=== PATIENT | male | born 1990 | race Two or more races ===

== ENCOUNTER 2017-01-25 01:28 | Inpatient (IN) | payer BC, OTHER ==
[~2017-01-25] VITALS: Ht 185.4 cm; Wt 96.6 kg
[2017-01-25] MEDS ORDERED: DOXYCYCLINE HYCLATE 100 MG CAP (01:47)
[2017-01-25 02:50] LABS: BASOPHILS % (AUTO) 0.4 % (0.0-2.0); EOSINOPHILS # (AUTO) 0.1 K/uL (0.0-0.7); EOSINOPHILS % (AUTO) 1.3 % (0.0-7.0); HEMATOCRIT 38.1 % (40-50); HEMOGLOBIN 12.5 G/DL (14.0-18.0); LYMPHOCYTES # (AUTO) 3.3 K/UL (0.8-4.8); LYMPHOCYTES % (AUTO) 30.5 % (20.5-51.5); MEAN CORPUSCULAR HEMOGLOBIN 29.7 UUG (27.0-31.0); MEAN CORPUSCULAR HGB CONC 33 g/dL (32.0-37.0); MEAN CORPUSCULAR VOLUME 90.6 FL (82.0-92.0); MONOCYTES # (AUTO) 0.7 K/UL (0.1-1.30); MONOCYTES % (AUTO) 6.9 % (0.0-11.0); NEUTROPHILS # (AUTO) 6.7 K/UL (1.8-8.9); NEUTROPHILS % (AUTO) 60.9 % (38.5-71.5); PLATELET COUNT (AUTO) 212 K/UL (150-450); WHITE BLOOD COUNT (AUTO) 10.8 K/UL (4.0-11.2)
[2017-01-25 02:56] LABS: CREATININE 1.2 mg/dL (0.6-1.3); POTASSIUM 3.7 mmol/L (3.5-5.1)
[2017-01-25 03:03] LABS: BILIRUBIN,DIRECT 0.1 mg/dL (0.0-0.2); BILIRUBIN,TOTAL 0.4 mg/dL (0.2-1.0); TOTAL PROTEIN, SERUM 7.5 g/dL (6.4-8.2)
[2017-01-25 04:27] VITALS: BP 116/59
[2017-01-25 11:04] VITALS: BP 117/72
[2017-01-25 14:47] LABS: BASOPHILS % (AUTO) 0.6 % (0.0-2.0); EOSINOPHILS % (AUTO) 0.3 % (0.0-7.0); HEMATOCRIT 39.9 % (40-50); HEMOGLOBIN 13.1 G/DL (14.0-18.0); LYMPHOCYTES # (AUTO) 1.7 K/UL (0.8-4.8); LYMPHOCYTES % (AUTO) 22.5 % (20.5-51.5); MEAN CORPUSCULAR HEMOGLOBIN 29.7 UUG (27.0-31.0); MEAN CORPUSCULAR HGB CONC 33 g/dL (32.0-37.0); MEAN CORPUSCULAR VOLUME 90.4 FL (82.0-92.0); MONOCYTES # (AUTO) 0.4 K/UL (0.1-1.30); MONOCYTES % (AUTO) 5.8 % (0.0-11.0); NEUTROPHILS # (AUTO) 5.4 K/UL (1.8-8.9); NEUTROPHILS % (AUTO) 70.8 % (38.5-71.5); PLATELET COUNT (AUTO) 234 K/UL (150-450); RED BLOOD CELL COUNT(AUTO) 4.41 MIL/UL (4.7-6.1); WHITE BLOOD COUNT (AUTO) 7.6 K/UL (4.0-11.2)
[2017-01-25 14:54] LABS: BILIRUBIN,TOTAL 0.4 mg/dL (0.2-1.0); CREATININE 1.2 mg/dL (0.6-1.3); MAGNESIUM 2.1 mg/dL (1.8-2.4); PHOSPHOROUS 3.6 mg/dL (2.5-4.9); POTASSIUM 4.2 mmol/L (3.5-5.1); TOTAL PROTEIN, SERUM 7.5 g/dL (6.4-8.2)
[2017-01-25 15:04] LABS: THYROID STIMULATING HORMONE 2.9 mIU/mL (0.358-3.740)
[2017-01-25 15:21] VITALS: BP 105/49
[2017-01-25 20:54] VITALS: BP 107/52
[2017-01-26 04:00] VITALS: BP 108/54
[2017-01-26 07:28] LABS: HEMATOCRIT 41.6 % (40-50); HEMOGLOBIN 13.5 G/DL (14.0-18.0); MEAN CORPUSCULAR HEMOGLOBIN 29.5 UUG (27.0-31.0); MEAN CORPUSCULAR HGB CONC 32 g/dL (32.0-37.0); MEAN CORPUSCULAR VOLUME 91.1 FL (82.0-92.0); PLATELET COUNT (AUTO) 189 K/UL (150-450); RED BLOOD CELL COUNT(AUTO) 4.57 MIL/UL (4.7-6.1); WHITE BLOOD COUNT (AUTO) 13.7 K/UL (4.0-11.2)
[2017-01-26 08:18] LABS: BILIRUBIN,TOTAL 0.4 mg/dL (0.2-1.0); CREATININE 1.2 mg/dL (0.6-1.3); PHOSPHOROUS 4.3 mg/dL (2.5-4.9); POTASSIUM 4.1 mmol/L (3.5-5.1); TOTAL PROTEIN, SERUM 7.8 g/dL (6.4-8.2)
[2017-01-26 11:26] VITALS: BP 107/50
[2017-01-26 11:41] LABS: BAND % (MANUAL) 6 % (0-10); BASOPHILS % (MANUAL) 1 % (0-2); EOSINOPHILS % (MANUAL) 1 % (0-8); LYMPHOCYTES % (MANUAL) 35 % (20-40); MONOCYTES % (MANUAL) 3 % (2-10); NEUTROPHILS % (MANUAL) 54 % (42-75)
[2017-01-26 15:38] VITALS: BP 106/59
[2017-01-26 19:03] LABS: *BILIRUBIN,URIN NEGATIVE (NEGATIVE); *BLOOD, URINE NEGATIVE (NEGATIVE); *CLARITY,URINE CLEAR (CLEAR); *COLOR,URINE YELLOW (YELLOW); *KETONES,URINE NEGATIVE (NEGATIVE); *PROTEIN,URINE NEGATIVE (NEGATIVE); *UROBILINOGEN,URINE 0.2 E.U./dl (NORMAL); LEUKOCYTE ESTERASE ,URINE NEGATIVE (NEGATIVE); NITRITE, URINE NEGATIVE (NEGATIVE); PH,URINE 7.5 (5.0-8.0); UGLUCOSE NEGATIVE (NEGATIVE)
[2017-01-26 19:32] LABS: MUCUS,URINE FEW /LPF (0-FEW); URINE AMORPHOUS PHOSPHATES MODERATE /HPF; WBC,URINE NONE SEEN /HPF (0-3)
[2017-01-26 20:18] VITALS: BP 108/49
[2017-01-27 06:42] LABS: BASOPHILS % (AUTO) 0.4 % (0.0-2.0); EOSINOPHILS # (AUTO) 0.2 K/uL (0.0-0.7); EOSINOPHILS % (AUTO) 2.1 % (0.0-7.0); HEMATOCRIT 39.2 % (40-50); HEMOGLOBIN 13.1 G/DL (14.0-18.0); LYMPHOCYTES # (AUTO) 2.9 K/UL (0.8-4.8); LYMPHOCYTES % (AUTO) 35.6 % (20.5-51.5); MEAN CORPUSCULAR HEMOGLOBIN 30.3 UUG (27.0-31.0); MEAN CORPUSCULAR HGB CONC 34 g/dL (32.0-37.0); MEAN CORPUSCULAR VOLUME 90.5 FL (82.0-92.0); MONOCYTES # (AUTO) 0.6 K/UL (0.1-1.30); NEUTROPHILS # (AUTO) 4.4 K/UL (1.8-8.9); NEUTROPHILS % (AUTO) 53.9 % (38.5-71.5); PLATELET COUNT (AUTO) 259 K/UL (150-450); RED BLOOD CELL COUNT(AUTO) 4.32 MIL/UL (4.7-6.1); WHITE BLOOD COUNT (AUTO) 8.1 K/UL (4.0-11.2)
[2017-01-27 06:54] VITALS: BP 110/52
[2017-01-27 07:03] LABS: BILIRUBIN,TOTAL 0.5 mg/dL (0.2-1.0); CREATININE 1.3 mg/dL (0.6-1.3); MAGNESIUM 2.1 mg/dL (1.8-2.4); PHOSPHOROUS 3.8 mg/dL (2.5-4.9); POTASSIUM 4.2 mmol/L (3.5-5.1); TOTAL PROTEIN, SERUM 7.3 g/dL (6.4-8.2)
[2017-01-27 11:44] VITALS: BP 118/59
[2017-01-27] MEDS ORDERED: LACT1CAP57 PO (12:00)
[2017-01-27] MEDS ORDERED: CLIN300C11 PO (12:00)
[2017-01-27] MEDS ORDERED: HYDR-3326 PO (12:00)
[2017-01-27] MEDS ORDERED: ACET325T53 PO (12:00)
== END 2017-01-27 14:38 | disposition home or self-care (01) | DRG 603 ==
LOC: ER 01:33 → MED 03:15
PROVIDERS: ADMIT Internal Medicine; ATTEND Internal Medicine
PROC: 0H9JXZZ Drainage of Left Upper Leg Skin, External Approach (ICD-10-PCS; principal; 2017-01-25)
PROC: 0H9JXZZ Drainage of Left Upper Leg Skin, External Approach (ICD-10-PCS; 2017-01-26)
DX: L03.116 Cellulitis of left lower limb (principal); E66.3 Overweight; D64.9 Anemia, unspecified; F17.210 Nicotine dependence, cigarettes, uncomplicated; K21.9 Gastro-esophageal reflux disease without esophagitis; L02.416 Cutaneous abscess of left lower limb; R73.9 Hyperglycemia, unspecified; Z82.49 Family history of ischemic heart disease and other diseases of the circulatory system; Z68.28 Body mass index [BMI] 28.0-28.9, adult
CPT/HCPCS: 36415; 71010; 83605; 83735; 84100; 84443; 85025; 85730; 87040; 87070; 87075; 87077; 87086; A4217; A4649; A4663; J0696; J1170; J2060; J2250; J2405; J3010; J3370; J3490; J7030; J7050; J7060; J7120

== ENCOUNTER 2021-06-03 14:36 | Emergency (ER) | payer BC, OTHER ==
[~2021-06-03] VITALS: Ht 185.4 cm; Wt 56.7 kg
[~2021-06-03 14:36] MED LIST: ACET325T53 PO; CLIN300C12 PO; HYDR-3326 PO; LACT1CAP57 PO
--- NOTE | 2021-06-03 16:53 | NUR ---
PT WAS EVALUATED BY DR DE ANDA. PT WAS D/C'd TO HOME.D/C INSTRUCTIONS GIVEN TO THE PT BY DR DE ANDA.
[2021-06-03 16:54] VITALS: BP 135/78
== END 2021-06-03 16:55 | disposition home or self-care (01) ==
LOC: ER 14:38
DX: R05.9 Cough, unspecified (principal); Z88.2 Allergy status to sulfonamides
CPT/HCPCS: 87426; 99283; U0003; A4663

== ENCOUNTER 2021-06-07 09:24 | Emergency (ER) | payer OTHER ==
[~2021-06-07] VITALS: Ht 185.4 cm; Wt 99.8 kg
[2021-06-07 10:01] LABS: HEMATOCRIT 44.9 % (36.7-47.1); MEAN CORPUSCULAR HEMOGLOBIN 31.1 uug (23.8-33.4); MEAN CORPUSCULAR VOLUME 92.8 fL (73.0-96.2); PLATELET COUNT (AUTO) 191 K/uL (152-348)
[2021-06-07 10:10] LABS: BILIRUBIN,TOTAL 0.4 mg/dL (0.2-1.0); CREATININE 1.6 mg/dL (0.6-1.3); POTASSIUM 3.8 mmol/L (3.5-5.1); TOTAL PROTEIN, SERUM 8.5 g/dL (6.4-8.2)
--- NOTE | 2021-06-07 10:28 | NUR ---
PT WAS EVALUATED BY DR DE ANDA. PT WAS D/C'd TO HOME. D/C INSTRUCTIONS GIVE NO THE PT BY DR DE ANDA.
[2021-06-07] MEDS ORDERED: AZIT250T PO (11:23)
[2021-06-07 11:51] VITALS: BP 122/75
[2021-06-07 18:44] LABS: NEUTROPHILS % (MANUAL) 0 % (42-75)
== END 2021-06-07 11:52 | disposition home or self-care (01) ==
LOC: ER 09:24
DX: U07.1 COVID-19 (principal); J40 Bronchitis, not specified as acute or chronic; F17.290 Nicotine dependence, other tobacco product, uncomplicated; Z88.2 Allergy status to sulfonamides; Z88.8 Allergy status to other drugs, medicaments and biological substances; Z79.2 Long term (current) use of antibiotics; Z79.899 Other long term (current) drug therapy
CPT/HCPCS: 36415; 71045; 80053; 85007; 85025; 87426; 99284; U0003; 70030-TC; A4663